=== PATIENT | male | born 1980 | race Caucasian/White ===

== ENCOUNTER 2018-02-07 21:12 | Emergency (ER) | payer SELFPAY ==
[2018-02-07 21:15] VITALS: BP 140/83; PULSE 95; RESP 17; TEMP 36.7; O2SAT 98; BMI 30.3
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
[2018-02-07] MEDS: Ondansetron 4 MG/2 ML Vial IV (21:30)
[2018-02-07] MEDS: Ketorolac 30 MG/ML Syringe IM (21:34)
[2018-02-07 21:38] VITALS: O2SAT 98
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
[2018-02-07] MEDS: oxyCODONE 5 MG Tablet PO (23:46)
[2018-02-07 23:47] VITALS: PULSE 65; O2SAT 97
[2018-02-07] MEDS: Ondansetron ODT 4 MG Tablet PO (23:47)
== END 2018-02-07 23:48 | disposition home or self-care (01) ==
PROVIDERS: Emergency Provider Emergency Medicine
DX: S06.0X1A Concussion with loss of consciousness of 30 minutes or less, initial encounter (principal); S16.1XXA Strain of muscle, fascia and tendon at neck level, initial encounter; S60.512A Abrasion of left hand, initial encounter; V63.6XXA Passenger in heavy transport vehicle injured in collision with car, pick-up truck or van in traffic accident, initial encounter; Y93.9 Activity, unspecified; Y92.410 Unspecified street and highway as the place of occurrence of the external cause; Y99.9 Unspecified external cause status; Z72.0 Tobacco use
CPT/HCPCS: 70450; 72040; 99284; A4216; J2405